=== PATIENT | male | born 1965 | race Hispanic/Latino ===

== ENCOUNTER 2023-05-11 09:32 | Emergency (ER) | payer SELFPAY ==
[2023-05-11] MEDS ORDERED: Lidocaine 1% (PF) 30 ML VIAL ONE (11:09)
[2023-05-11] MEDS ORDERED: Ampicillin/Sulbactam 3 GM in Sodium Chloride 0.9% 100 ML IVPB SCH (12:00)
[2023-05-11] MEDS ORDERED: Ampicillin/Sulbactam 3 GM VIAL ONE (12:16)
[2023-05-11] MEDS ORDERED: Sodium Chloride 0.9% 100 ML ONE (12:17)
[2023-05-11] MEDS ORDERED: Bacitracin 1 PK ONE (12:25)
[2023-05-11] MEDS ORDERED: Boostrix 0.5 ML (Tdap) VIAL (>/=7 yrs of age) ONE (12:29)
== END 2023-05-11 13:09 | disposition home or self-care (01) ==
LOC: ERS 09:32
DX: S67.191A Crushing injury of left index finger, initial encounter (principal); S62.601B Fracture of unspecified phalanx of left index finger, initial encounter for open fracture; E11.9 Type 2 diabetes mellitus without complications; I10 Essential (primary) hypertension; Z79.84 Long term (current) use of oral hypoglycemic drugs; X58.XXXA Exposure to other specified factors, initial encounter
CPT/HCPCS: 12001; 90471; 90715; 96374; J0295; J2001; J3490